=== PATIENT | female | born 1975 | race African-American/Black ===

== ENCOUNTER 2019-05-07 13:43 | Emergency (ER) | payer BC, OTHER ==
[~2019-05-07] VITALS: Ht 154.9 cm; Wt 88.5 kg
[2019-05-07] MEDS ORDERED: NKM (13:53)
--- NOTE | 2019-05-07 13:55 | NUR ---
ED Nurse Note: PT WALKED IN TO ER TODAY FROM HOME. AOX4. PT C/O RIGHT NECK PAIN, 3/10 AT REST, RADIATING DOWN NECK TO RIGHT ELBOW X THIS MORNING. PT STATES PAIN IS EXACERBATED WITH ACTIVITY. FULL ROM OF NECK, SHOULDER, AND ELBOW. CIRCULATION AND SENSATION INTACT, CAP REFILL <2 SECONDS, MUSCLE STRENGTH 5/5. PT DENIES NUMBNESS OR TINGLING. PT DENIES INJURY OR TRAUMA.
[2019-05-07 13:57] VITALS: BP 116/78
--- NOTE | 2019-05-07 14:11 | Emergency Room Report ---
History of Present Illness General Chief Complaint: Pain Source: Patient Present Illness HPI 43 YO Female presents to the ED c/o progressive 03/09 in severity right shoulder upper back pain/ tightness x 3 days. Pt. is right hand dominant. Denies trauma or fall. Denies midline neck or back pain. Denies DSOUZA. Denies notable strenuous activity/lifting. 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 Pt. denies sharp shooting or electrical pain. Denies weakness in the affected extremity. Denies numbness tingling or loss of sensation or gross motor movements of the extremities, incontinence of bowel or bladder. Denies CP, Palpitations, LOC, AMS, dizziness, Changes in Vision, weakness or a sudden severe headache. Allergies: Coded Allergies: No Known Allergies (Unverified , 05/07/19) Patient History Past Medical History: see triage record Past Surgical History: none Pertinent Family History: none Last Menstrual Period: on period Reviewed Nursing Documentation: PMH: Agreed; PSxH: Agreed Nursing Documentation-PMH Past Medical History: No Stated History Review of Systems All Other Systems: negative except mentioned in HPI Physical Exam Vital Signs Date Time Temp Pulse Resp B/P (MAP) Pulse Ox O2 Delivery O2 Flow Rate FiO2 05/07/19 13:48 98.1 84 16 114/80 (91) 99 Room Air Sp02 EP Interpretation: reviewed, normal General Appearance: no apparent distress, alert, GCS 15, non-toxic Head: normocephalic, atraumatic Eyes: bilateral eye normal inspection, bilateral eye PERRL ENT: hearing grossly normal, normal voice Neck: full range of motion, no meningismus, no bony tend, tender lateral - RIght - Trap. Respiratory: chest non-tender, lungs clear, normal breath sounds, speaking full sentences Cardiovascular #1: regular rate, rhythm, normal capillary refill Cardiovascular #2: 2+ radial (R), 2+ radial (L) Musculoskeletal: back normal, gait/station normal, normal range of motion, tender - Right trapezius and rhomboid. no spinous process ttp, no localized bony ttp. FROM of Neck and right shoulder. no palpable step-offs or visible deformity. Neurologic: alert, oriented x3, responsive, motor strength/tone normal, sensory intact, normal gait, speech normal, grossly normal Psychiatric: judgement/insight normal Skin: no rash Medical Decision Making PA Attestation Dr. Montoya is my supervising Physician whom patient management has been discussed with. Diagnostic Impression: Primary Impression: Muscle spasm Additional Impression: Muscle spasm of shoulder region ER Course 43 YO Female presents to the ED c/o progressive 710 in severity right shoulder upper back pain/ tightness x 3 days. Pt. is right hand dominant. Denies trauma or fall. Denies midline neck or back pain. Denies DSOUZA. Denies notable strenuous activity/lifting. 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 Pt. denies sharp shooting or electrical pain. Denies weakness in the affected extremity. Denies numbness tingling or loss of sensation or gross motor movements of the extremities, incontinence of bowel or bladder. Denies CP, Palpitations, LOC, AMS, dizziness, Changes in Vision, weakness or a sudden severe headache. Ddx considered but are not limited to Fracture, dislocation, contusion, epidural abscess, Sprain/Strain/Spasm Vital signs: are WNL, pt. is afebrile H&PE are most consistent with muscle spasm of the right shoulder area. mild torticollis to the right. FROM of the Shoulder, no localized bony ttp. ORDERS: none required at this time. ED INTERVENTIONS: -Toradol IM -Lidoderm TP -I do not identify an emergent condition at this time. With current presentation , pt. is stable for close outpatient follow up and conservative treatment. D/ w pt. to return promptly to ED with worsening or new symptoms.- Pt. verbalizes' understanding and agreement with proposed treatment plan. DISCHARGE: At this time pt. is stable for d/c to home. Will provide printed patient care instructions, and any necessary prescriptions. Care plan and follow up instructions have been discussed with the patient prior to discharge. Last Vital Signs Date Time Temp Pulse Resp B/P (MAP) Pulse Ox O2 Delivery O2 Flow Rate FiO2 05/07/19 13:57 98.2 78 15 116/78 100 Room Air Status: improved Disposition: HOME, SELF-CARE Condition: Stable Scripts Lidocaine Patch* (Lidoderm Patch*) 1 Each Adh..patch 1 PATCH TOPIC DAILY, #30 PATCH 0 Refills Patch(es) may remain in place for up to 12 hours in any 24-hour period. Prov: Kia Shine 05/07/19 Acetaminophen* (TYLENOL EXTRA STRENGTH*) 500 Mg Tablet 500 MG ORAL Q6H, #20 TAB 0 Refills Prov: Kia Shine 05/07/19 Methocarbamol* (ROBAXIN-750*) 750 Mg Tablet 750 MG PO QID, #28 TAB 0 Refills Prov: Kia Shine 05/07/19 Departure Forms: Return to Work Return to Work Date: May 11, 2019 Work Restrictions: None Return to Full Activity: May 11, 2019 Patient Instructions: Muscle Cramps and Spasms, [id number], Muscle Strain, [id number] Additional Instructions: Take medications as directed. Follow up with a Primary Care Provider in 3-5 days, even if your symptoms have resolved. --Please review list of primary care clinics, if you do not already have a primary care provider Return sooner to ED if new symptoms occur, or current symptoms become worse. Do not drink alcohol, drive, or operate heavy machinery while taking Robaxin ( Muscle Relaxers) as this may cause drowsiness. - Please note that this Emergency Department Report was dictated using [employer] repairer technology software, occasionally this can lead to erroneous entry secondary to interpretation by the dictation equipment. Kia Shine May 07, 2019 14:11
[2019-05-07] MEDS ORDERED: ROBAXIN-750750 MG PO (14:12)
[2019-05-07] MEDS ORDERED: LIDODERM700 M1 TOPIC (14:12)
[2019-05-07] MEDS ORDERED: TYLENOL EXTRA500 MG ORAL (14:12)
[2019-05-07] MEDS ORDERED: Ketorolac 30mg Inj IM ONE (14:15)
[2019-05-07 14:20] VITALS: BP 112/74
--- NOTE | 2019-05-07 14:20 | NUR ---
ED Nurse Note: PT SITTING PEACEFULLY IN BED IN NAD. AOX4. PRESCRIPTIONS AND DISCHARGE PAPERWORK EXPLAINED TO PT. PT VERBALIZES UNDERSTANDING AND ALL QUESTIONS ANSWERED. PRESCRIPTIONS AND DISCHARGE PAPERWORK GIVEN TO PT AND ID WRISTBAND REMOVED. PT WALKED OUT OF ER WITH STEADY GAIT AND ALL BELONGINGS.
== END 2019-05-07 14:21 | disposition home or self-care (01) ==
LOC: EMR 14:15
DX: M62.838 Other muscle spasm (principal)
CPT/HCPCS: 96372; 99283; J1885